=== PATIENT | female | born 1960 | race Two or more races ===

== ENCOUNTER 2017-02-19 17:28 | Emergency (ER) | payer OTHER ==
--- NOTE | 2017-02-19 18:17 | ER Document Report ---
ED Medical Screen (RME) - General Chief Complaint: Chest Tightness Stated Complaint: CHEST PAIN/LEFT SIDE NUMBNESS Time Seen by Provider: 02/19/17 18:14 Mode of Arrival: Ambulatory Information source: Patient Notes: 3 day history of shortness of breath occasional dyspnea on exertion swelling the lower extremities indigestion type chest discomfort or tightness and today has noticed numbness in the left face and left arm. She reports no history of prolonged travel or immobilization. She does report she had some laser treatments to veins in her legs approximately week ago and initially attributed to swelling in her legs to that. She reports slight tingling to the left face and arm now but denies shortness of breath or chest pain. 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 IN LAST 30 DAYS: No - Related Data Allergies/Adverse Reactions: gluten Allergy (Verified 02/19/17 17:49) moxifloxacin HCl [From Avelox] Adverse Reaction (Verified 01/07/14 16:41) Past Medical History Renal/ Medical History: Denies: Hx Peritoneal Dialysis Physical Exam - Vital signs Vitals: Temp Pulse Resp BP Pulse Ox 98.1 F 82 18 145/79 H 99 02/19/17 17:45 02/19/17 17:45 02/19/17 17:45 02/19/17 17:45 02/19/17 17:45 Course - Vital Signs Vital signs: Temp Pulse Resp BP Pulse Ox 98.1 F 82 18 145/79 H 99 02/19/17 17:45 02/19/17 17:45 02/19/17 17:45 02/19/17 17:45 02/19/17 17:45
[2017-02-19 18:55] LABS: ABSOLUTE EOSINOPHILS # (AUTO) 0.5 10^3/uL (0.0-0.6); ABSOLUTE LYMPHOCYTES (AUTO) 3.2 10^3/uL (0.5-4.7); ABSOLUTE MONOCYTES (AUTO) 0.6 10^3/uL (0.1-1.4); ABSOLUTE NEUT (AUTO) 7.5 10^3/uL (1.7-8.2); BASOPHILS % (AUTO) 0.4 % (0-2); EOSINOPHILS % (AUTO) 4.1 % (0-6); HEMATOCRIT 40.4 % (36.0-47.0); HEMOGLOBIN 13.4 g/dL (12.0-15.5); HGB HCT DIFFERENCE -0.2; LYMPHOCYTES % (AUTO) 27.1 % (13-45); MEAN CORPUSCULAR HEMOGLOBIN 26.9 pg (27.0-33.4); MEAN CORPUSCULAR HGB CONC 33.1 g/dL (32.0-36.0); MEAN CORPUSCULAR VOLUME 81 fl (80-97); MONOCYTES % (AUTO) 4.7 % (3-13); RED BLOOD COUNT 4.97 10^6/uL (3.72-5.28); RED CELL DISTRIBUTION WIDTH 12.9 % (11.5-14.0); SEGMENTED NEUTROPHILS % (AUTO) 63.7 % (42-78); WHITE BLOOD COUNT 11.8 10^3/uL (4.0-10.5)
[2017-02-19 19:08] LABS: ALANINE AMINOTRANSFERASE 34 U/L (9-52); ALBUMIN 4.5 g/dL (3.5-5.0); ALKALINE PHOSPHATASE 102 U/L (38-126); ANION GAP 14 (5-19); ASPARTATE AMINO TRANSFERASE 22 U/L (14-36); BILIRUBIN,DIRECT 0.3 mg/dL (0.0-0.4); BILIRUBIN,TOTAL 1.3 mg/dL (0.2-1.3); BLOOD UREA NITROGEN 14 mg/dL (7-20); CALCIUM 10.1 mg/dL (8.4-10.2); CARBON DIOXIDE 27 mmol/L (22-30); CHLORIDE 101 mmol/L (98-107); CREATINE KINASE 74 U/L (30-135); CREATININE RESULT 0.77 mg/dL (0.52-1.25); GLUCOSE 100 mg/dL (75-110); LIPASE 46.2 U/L (23-300); POTASSIUM 4.3 mmol/L (3.6-5.0); TOTAL PROTEIN 7.5 g/dL (6.3-8.2)
[2017-02-19 19:29] LABS: CREATINE KINASE MB 0.86 ng/mL (<4.55)
[2017-02-19 19:30] LABS: TROPONIN I < 0.012 ng/mL
--- NOTE | 2017-02-19 19:44 | ER Document Report ---
ED General - General Mode of Arrival: Ambulatory Information source: Patient TRAVEL OUTSIDE OF THE [place] IN LAST 30 DAYS: No - HPI Onset: Other - 3-5 days ago Associated symptoms: Other - see notes above <RASHAWN SINGLETON - Last Filed: 02/19/17 19:36> <STARLA LACY - Last Filed: 02/19/17 22:08> - General Chief Complaint: Chest Tightness Stated Complaint: CHEST PAIN/LEFT SIDE NUMBNESS Time Seen by Provider: 02/19/17 18:14 Notes: 56 year old female with history of GERD presents to the ED complaining of substernal and left chest pressure with deep breathing that started 3-5 days ago. Patient reports that she felt like she was having excess gas build up, so she has been taking GasX and Tums. Patient reports that she achieved relief when belching 2 days ago. Patient additionally complains of numbness and tingling to the left cheek and 'spotting' down the left lateral arm which started at 1400 today. Patient denies any weakness. Patient also states that she had bilateral lower extremity swelling which is no longer present. Patient had a laser treatment performed on her bilateral legs by Dr. Pierre every 10 days from 11/22/2016 to 01/10/2017. Patient has a follow up appointment with Dr. Pierre tomorrow (02/20/2017). Patient is currently on Estradiol and thyroid supplements. Patient's primary care provider is Dr. Thapa. (RASHAWN SINGLETON) - Related Data Allergies/Adverse Reactions: gluten Allergy (Verified 02/19/17 17:49) moxifloxacin HCl [From Avelox] Adverse Reaction (Verified 01/07/14 16:41) Past Medical History - General Information source: Patient - Social History Smoking Status: Unknown if Ever Smoked Family History: Reviewed & Not Pertinent Patient has suicidal ideation: No Patient has homicidal ideation: No Endocrine Medical History: Reports: Other - Patient is taking thyroid and estradiol supplementation. Renal/ Medical History: Reports: Hx Ovarian Cysts. Denies: Hx Peritoneal Dialysis GI Medical History: Reports: Hx Gastroesophageal Reflux Disease Past Surgical History: Reports: Hx Breast Surgery - breast implants and benign cyst removal, Hx Cholecystectomy, Hx Hysterectomy, Hx Tonsillectomy <RASHAWN SINGLETON - Last Filed: 02/19/17 19:36> Review of Systems - Review of Systems Constitutional: No symptoms reported EENT: No symptoms reported Cardiovascular: See HPI, Chest pain - "pressure" Respiratory: See HPI, Hurts to breathe Gastrointestinal: No symptoms reported Genitourinary: No symptoms reported Female Genitourinary: No symptoms reported Musculoskeletal: No symptoms reported Skin: No symptoms reported Hematologic/Lymphatic: No symptoms reported Neurological/Psychological: See HPI, Numbness - left face and left lateral arm, Tingling - left face and left lateral arm. denies: Weakness -: Yes All other systems reviewed and negative <SINGLETONRASHAWN - Last Filed: 02/19/17 19:36> Physical Exam - General General appearance: Alert In distress: None - HEENT Head: Normocephalic, Atraumatic Eyes: Normal Extraocular movements intact: Yes Pupils: PERRL Neck: Normal. No: Carotid bruit - Respiratory Respiratory status: No respiratory distress Chest status: Nontender Breath sounds: Normal Chest palpation: Normal - Cardiovascular Rhythm: Regular Heart sounds: Normal auscultation - Abdominal Inspection: Obese Distension: No distension Tenderness: Nontender - Back Back: Normal - Extremities General upper extremity: Normal inspection, Normal ROM. No: Edema General lower extremity: Normal inspection, Normal ROM. No: Edema - Neurological Neuro grossly intact: Yes - No motor deficits noted. - Psychological Associated symptoms: Normal affect, Normal mood - Skin Skin Temperature: Warm Skin Moisture: Dry Skin Color: Normal <VALENTIN SINGLETONUR - Last Filed: 02/19/17 19:36> Course - Laboratory Result Diagrams: 02/19/17 18:20 02/19/17 18:20 <SINGLETONRASHAWN - Last Filed: 02/19/17 19:36> - Laboratory Result Diagrams: 02/19/17 18:20 02/19/17 18:20 - Diagnostic Test Radiology reviewed: Image reviewed, Reports reviewed - CT scan of the brain is unremarkable, there is mucosal thickening in the right maxillary sinus. Chest x- ray is normal. - EKG Interpretation by Me EKG shows normal: Sinus rhythm, [place], Intervals, QRS Complexes, ST-T Waves Rate: Normal - 79 Rhythm: NSR <STARLA LACY - Last Filed: 02/19/17 22:08> - Vital Signs Vital signs: Temp Pulse Resp BP Pulse Ox 98.1 F 61 16 118/76 94 02/19/17 17:45 02/19/17 19:55 02/19/17 19:55 02/19/17 21:01 02/19/17 21:02 - Laboratory Laboratory results interpreted by me: 02/19/17 18:20 WBC 11.8 H MCH 26.9 L Discharge <RASHAWN SINGLETON - Last Filed: 02/19/17 19:36> <STARLA LACY - Last Filed: 02/19/17 22:08> - Discharge Clinical Impression: Numbness and tingling, Chest tightness or pressure, Shortness of breath Condition: Stable Disposition: HOME, SELF-CARE Additional Instructions: The CT scan of your head showed only some right maxillary sinus disease. Your EKG was normal. Testing for the presence of blood clots causing his shortness of breath was negative. The numbness and tingling sensation you had has been improving. At this time we cannot definitively say if this is a transient ischemic attack or not. You should take 4 baby aspirin this evening. Follow-up with Dr. Thapa tomorrow for further evaluation. RETURN TO THE EMERGENCY ROOM IF ANY NEW OR WORSENING SYMPTOMS. Referrals: MICKI DA SILVA MD [Primary Care Provider] - Follow up tomorrow Scribe Attestation: 02/19/17 22:07 I personally performed the services described in the documentation, reviewed and edited the documentation which was dictated to the scribe in my presence, and it accurately records my words and actions. (STARLA LACY) Scribe Documentation - Scribe Written by Veda:: Veda Cruz, 02/19/2017 194 acting as scribe for :: Inez <RASHAWN SINGLETON - Last Filed: 02/19/17 19:36>
[2017-02-19 22:36] VITALS: BP 132/84
--- NOTE | 2017-02-19 23:38 | EKG REPORT ---
SEVERITY:- NORMAL ECG - SINUS RHYTHM : Confirmed by: Migel Rodriguez 19-Feb-2017 23:37:12
== END 2017-02-19 22:37 | disposition home or self-care (01) ==
LOC: ER 17:28
DX: R07.89 Other chest pain (principal); R20.0 Anesthesia of skin; R20.2 Paresthesia of skin; R06.02 Shortness of breath; Z98.890 Other specified postprocedural states; Z79.899 Other long term (current) drug therapy; Z91.018 Allergy to other foods; Z79.890 Hormone replacement therapy
CPT/HCPCS: 36415; 70450; 71010; 80053; 82550; 82553; 83690; 83880; 84484; 85025; 85379; 93005; 93010; 99285

== ENCOUNTER → 2019-05-31 | Outpatient (CLI) | payer OTHER ==
--- NOTE | 2019-06-01 18:19 | XCELERA REPORT ---
[address] [address] Transthoracic Echocardiogram Report Name: CHRISTINA APPLE Age: 58 yrs Gender: Female : 1960 Patient Status: Preadmit Patient Location: [facility] Study Date: 05/31/2019 09:10 AM Height: 67 in Weight: 182 lb BSA: 1.9 m2 Procedure: A two-dimensional transthoracic echocardiogram with color flow and Doppler was performed. Study Quality: Fair. Reason For Study: ENCOUNTER FOR CHEMO History: ENCOUNTER FOR CHEMOTHERAPY. Ordering Physician: LORI ROJO Performed By: Libby Benoit Interpretation Summary The left ventricle is normal in size. There is normal left ventricular wall thickness. The left ventricular ejection fraction is within normal limits. LV EF is 65% Doppler measurements suggest impaired left ventricular relaxation, which is associated with grade I/IV or mild diastolic dysfunction The left ventricular wall motion is normal. There is no thrombus. No ASD,VSD , or PFO seen. The right ventricle is grossly normal size. The right atrium is normal. The left atrial size is normal. There is no evidence of mitral valve prolapse. There is no vegetation seen on the mitral valve. There is no mitral valve stenosis. There is a mild amount of mitral regurgitation There is no aortic valvular vegetation. There is no aortic valve stenosis There is no LVOT obstruction. There is a trace to mild amount of aortic regurgitation There is no tricuspid stenosis. There is a trace amount of tricuspid regurgitation Unable to calculate RVSP due to insufficient TR jet. There is no pulmonic valvular stenosis. There is a trace amount of pulmonic regurgitation The aortic root is normal size. The inferior vena cava appeared normal and decreased > 50% with respiration (RAP 5-10 mmHg) There is no pericardial effusion. MMode/2D Measurements & Calculations RVDd: 3.3 cm LVIDd: 4.3 cm FS: 33.1 % Ao root diam: 2.8 cm IVSd: 0.91 cm LVIDs: 2.9 cm EDV(Teich): Ao root area: LVPWd: 0.88 cm 83.5 ml 6.1 cm2 ESV(Teich): LA dimension: 3.5 cm 31.8 ml EF(Teich): 62.0 % LVLd ap4: 7.4 cm SV(MOD-sp4): EDV(MOD-sp4): 53.0 ml 82.0 ml LVLs ap4: 5.9 cm ESV(MOD-sp4): 29.0 ml EF(MOD-sp4): 64.6 % Doppler Measurements & Calculations MV E max amara: MV P1/2t max amara: Ao V2 max: LV V1 max P.2 cm/sec 49.0 cm/sec 108.2 cm/sec 4.4 mmHg MV A max amara: MV P1/2t: 100.3 msec Ao max P.7 mmHg LV V1 max: 74.8 cm/sec MVA(P1/2t): 2.2 cm2 104.9 cm/sec MV E/A: 0.64 MV dec slope: 142.9 cm/sec2 MV dec time: 0.32 sec PA V2 max: PI end-d amara: MV P1/2t-pr_phl: 64.4 cm/sec 97.3 cm/sec 100.3 msec PA max P.7 mmHg Left Ventricle The left ventricle is normal in size. There is normal left ventricular wall thickness. The left ventricular ejection fraction is within normal limits. LV EF is 65%. Doppler measurements suggest impaired left ventricular relaxation, which is associated with grade I/IV or mild diastolic dysfunction. The left ventricular wall motion is normal. There is no thrombus. No ASD,VSD , or PFO seen. Right Ventricle The right ventricle is grossly normal size. Atria The right atrium is normal. The left atrial size is normal. Mitral Valve There is no evidence of mitral valve prolapse. There is no vegetation seen on the mitral valve. There is no mitral valve stenosis. There is a mild amount of mitral regurgitation. Aortic Valve There is no aortic valvular vegetation. There is no aortic valve stenosis. There is no LVOT obstruction. There is a trace to mild amount of aortic regurgitation. Tricuspid Valve There is no tricuspid stenosis. There is a trace amount of tricuspid regurgitation. Unable to calculate RVSP due to insufficient TR jet. Pulmonic Valve There is no pulmonic valvular stenosis. There is a trace amount of pulmonic regurgitation. Great Vessels The aortic root is normal size. The inferior vena cava appeared normal and decreased > 50% with respiration (RAP 5-10 mmHg). Effusions There is no pericardial effusion. : LORI ROJO > Gisella Michaels
== END ==
LOC: SP 08:24
PROVIDERS: ATTEND Internal Medicine Hematology & Oncology
DX: Z09 Encounter for follow-up examination after completed treatment for conditions other than malignant neoplasm (principal); Z79.899 Other long term (current) drug therapy
CPT/HCPCS: 93306

== ENCOUNTER → 2019-08-25 | Outpatient (CLI) | payer OTHER ==
--- NOTE | 2019-08-26 21:54 | XCELERA REPORT ---
[address] [address] Transthoracic Echocardiogram Report Name: CHRISTINA APPLE Age: 59 yrs Gender: Female : 1960 Patient Status: Outpatient Patient Location: [facility] Study Date: 08/25/2019 02:05 PM Height: 67 in Weight: 174 lb BSA: 1.9 m2 Procedure: A two-dimensional transthoracic echocardiogram with color flow and Doppler was performed. The study was technically difficult with many images being suboptimal in quality. Reason For Study: ANTINEOPLASTIC CHEMOTHERAPY History: ANTINEOPLASTIC CHEMOTHERAPY. Ordering Physician: YUE DE PAZ Performed By: Consuelo Tejeda Interpretation Summary The left ventricle is normal in size. There is normal left ventricular wall thickness. LV EF is 65% Left ventricular systolic function is normal. Doppler measurements suggest impaired left ventricular relaxation, which is associated with grade I/IV or mild diastolic dysfunction The left ventricular wall motion is normal. There is no thrombus. Probably no ASD ,VSD ,or PFO seen The right ventricular cavity is small. The right ventricle is not well visualized secondary to technical limitations The right atrium is normal. The left atrial size is normal. There is no evidence of mitral valve prolapse. There is no vegetation seen on the mitral valve. There is no mitral valve stenosis. There is a trace amount of mitral regurgitation There is no aortic valvular vegetation. There is no aortic valve stenosis There is no LVOT obstruction. There is a trace amount of aortic regurgitation There is no tricuspid stenosis. There is a trace amount of tricuspid regurgitation Tricuspid regurgitation jet envelope not well defined to measure RV systolic pressure accurately. There is no pulmonic valvular stenosis. There is no pulmonic valvular regurgitation. The aortic root is normal size. The inferior vena cava appeared normal and decreased > 50% with respiration (RAP 5-10 mmHg) There is no pericardial effusion. MMode/2D Measurements & Calculations IVSd: 0.88 cm LVIDd: 4.4 cm FS: 37.1 % Ao root diam: 3.1 cm LVIDs: 2.8 cm EDV(Teich): 88.2 ml Ao root area: 7.4 cm2 LVPWd: 1.1 cm ESV(Teich): 28.9 ml EF(Teich): 67.3 % Doppler Measurements & Calculations MV E max amara: MV dec slope: Ao V2 max: AI max amara: 55.9 cm/sec 285.9 cm/sec2 143.3 cm/sec 445.6 cm/sec MV A max amara: MV dec time: Ao max PG: AI max P.4 mmHg 62.6 cm/sec 0.20 sec 8.2 mmHg AI dec slope: MV E/A: 0.89 366.9 cm/sec2 AI P1/2t: 355.7 msec LV V1 max PG: PA V2 max: 6.3 mmHg 79.9 cm/sec LV V1 max: PA max P.6 mmHg 125.8 cm/sec Left Ventricle The left ventricle is normal in size. There is normal left ventricular wall thickness. LV EF is 65%. Left ventricular systolic function is normal. Doppler measurements suggest impaired left ventricular relaxation, which is associated with grade I/IV or mild diastolic dysfunction. The left ventricular wall motion is normal. There is no thrombus. Probably no ASD ,VSD ,or PFO seen. Right Ventricle The right ventricular cavity is small. The right ventricle is not well visualized secondary to technical limitations. Atria The right atrium is normal. The left atrial size is normal. Mitral Valve There is no evidence of mitral valve prolapse. There is no vegetation seen on the mitral valve. There is no mitral valve stenosis. There is a trace amount of mitral regurgitation. Aortic Valve There is no aortic valvular vegetation. There is no aortic valve stenosis. There is no LVOT obstruction. There is a trace amount of aortic regurgitation. Tricuspid Valve There is no tricuspid stenosis. There is a trace amount of tricuspid regurgitation. Tricuspid regurgitation jet envelope not well defined to measure RV systolic pressure accurately. Pulmonic Valve There is no pulmonic valvular stenosis. There is no pulmonic valvular regurgitation. Great Vessels The aortic root is normal size. The inferior vena cava appeared normal and decreased > 50% with respiration (RAP 5-10 mmHg). Effusions There is no pericardial effusion. : YUE DE PAZ Lakshmi
== END ==
LOC: SP 12:50
PROVIDERS: ATTEND Nurse Practitioner Family
DX: Z51.11 Encounter for antineoplastic chemotherapy (principal); I34.0 Nonrheumatic mitral (valve) insufficiency
CPT/HCPCS: 93306

== ENCOUNTER → 2019-11-25 | Outpatient (CLI) | payer OTHER ==
--- NOTE | 2019-11-25 18:19 | XCELERA REPORT ---
[address] [address] Transthoracic Echocardiogram Report Name: CHRISTINA APPLE Age: 59 yrs Gender: Female : 1960 Patient Status: Outpatient Patient Location: [facility] Study Date: 11/25/2019 09:16 AM Height: 67 in Weight: 169 lb BSA: 1.9 m2 Reason For Study: HERCEPTIN MONITORING Ordering Physician: YUE DE PAZ Performed By: Fransico Cuevas Interpretation Summary Reason for ECHO is for herceptin monitoring. Suboptimal echo study is due to no Quantitative Biplane LVEF, Visual impression of LVEFis crude and not precise enough to detect systolic impairment to guide continuation or withholding of Herceptin, hence should not be used. Temporal variability of EF adds to difficulty of monitoring and detection of cardiotoxicity caused by chemotherapy. Chemotherapy pts need to be sent to major centres for 3 D ECHO and strain imaging in order to get accurate assessment of early changes in myocardial function and identify subclinical LV dysfunction. With the above stipulation, echo report as follows; Moderate calcified aortic root. Mild nonstenotic calcific aortic valvular disease, 3 cusps, mild AR with no LV enlargement. No mitral annular calcification. No MS, no MVP and only mild MR with no LA enlargement. No LVH, LVEF visually 60-65% with LV diastolic dysfunction stage I. Except for basal inferior wall, there appears to be no hypokinesis in other segments of LV.No LV enlargement. This Hospital doesnot have 3D ECHO equipment and no expertise in strain imaging to assess subtle or subclinical systolic impairment. Right heart is not enlarged and mild TR was not sampled to allow derivation of RVSP or pulm .hypertension. MMode/2D Measurements & Calculations RVDd: 2.9 cm LVIDd: 4.4 cm FS: 32.9 % Ao root diam: 3.2 cm IVSd: 0.94 cm LVIDs: 3.0 cm EDV(Teich): 89.9 ml LVPWd: 0.82 cm ESV(Teich): 34.5 ml Ao root area: 8.0 cm2 LA dimension: 3.8 cm EF(Teich): 61.6 % Doppler Measurements & Calculations MV E max amara: MV P1/2t max amara: Ao V2 max: AI max amara: 53.7 cm/sec 61.5 cm/sec 102.6 cm/sec 404.0 cm/sec MV A max amara: MV P1/2t: 58.1 msec Ao max P.2 mmHgAI max P.5 cm/sec MVA(P1/2t): 3.8 cm2 65.3 mmHg MV E/A: 0.82 MV dec slope: AI dec slope: 261.7 cm/sec2 310.2 cm/sec2 AI P1/2t: MV dec time: 452.1 msec 0.27 sec LV V1 max PG: PA V2 max: AV P1/2t-pr_phl: MV P1/2t-pr_phl: 4.6 mmHg 92.3 cm/sec 452.1 msec 58.1 msec LV V1 max: PA max P.4 mmHg 107.1 cm/sec I WMSI = 1.06 % Normal = 94 Segments Size X - Cannot 2 - 4 - 1-2 small Interpret 1 - Normal Hypokinetic 3 - AkineticDyskinetic 3-5 moderate 5 - 6-14 large Aneurysmal 15-16 diffuse : YUE DE PAZ Andre
== END ==
LOC: RAD 08:52
PROVIDERS: ATTEND Nurse Practitioner Family
DX: Z79.899 Other long term (current) drug therapy (principal)
CPT/HCPCS: 93306

== ENCOUNTER 2020-02-07 10:09 | Emergency (ER) | payer OTHER ==
--- NOTE | 2020-02-07 10:34 | ER Document Report ---
ED Cardiac - General Chief Complaint: Chest Pain Stated Complaint: CHEST DISCOMFORT Time Seen by Provider: 02/07/20 10:20 Primary Care Provider: YUE DE PAZ FNP-C [Primary Care Provider] - Follow up as needed Notes: HPI: 59-year-old female that presents today stating she was walking today and felt some "gas-like pain" in the epigastric region. No radiation to the back of the chest. No cough, fevers, or shortness of breath. No calf pain or leg swelling. She denies any other aggravating relieving factors. No nausea, vomiting, or fevers. She was concerned because she started to feel little lightheaded. Patient is status post double mastectomy completing a course of chemotherapy September 27. She is on q. 3-week infusions of maintenance therapy by the oncologist. She denies any cardiac history. She currently denies any abdominal or chest pain at this time. ROS: See HPI All other review of systems reviewed and otherwise negative Reviewed vital signs and nursing note as charted by RN. PHYSICAL EXAM: CONSTITUTIONAL: Alert and oriented and responds appropriately to questions. Well-appearing; well-nourished HEAD: Normocephalic; atraumatic EYES: PERRL; Conjunctivae clear, sclerae non-icteric ENT: Normal nose; no rhinorrhea; moist mucous membranes; pharynx without lesions noted NECK: Supple without meningismus; non-tender; no cervical lymphadenopathy, no masses CARD: Regular rate and rhythm; no murmurs; symmetric distal pulses RESP: Normal chest excursion without splinting or tachypnea; breath sounds clear and equal bilaterally; no wheezes, no rhonchi, no rales ABD/GI: Normal bowel sounds; non-distended; soft, non-tender; no palpable organomegaly or masses BACK: The back appears normal and is non-tender to palpation EXT: Normal ROM in all joints; non-tender to palpation; no edema SKIN: No acute lesions noted NEURO: CN 2-12 intact; 5/5 bilateral upper and lower extremity strength with sensation intact to light touch PSYCH: The patient's mood and manner are appropriate. Grooming and personal hygiene are appropriate. TRAVEL OUTSIDE OF THE [place] IN LAST 30 DAYS: No - Related Data Allergies/Adverse Reactions: gluten Allergy (Verified 02/19/17 17:49) moxifloxacin HCl [From Avelox] Adverse Reaction (Verified 01/07/14 16:41) Past Medical History - Social History Smoking Status: Unknown if Ever Smoked Family History: Reviewed & Not Pertinent Renal/ Medical History: Reports: Hx Ovarian Cysts. Denies: Hx Peritoneal Dialysis GI Medical History: Reports: Hx Gastroesophageal Reflux Disease Past Surgical History: Reports: Hx Breast Surgery - breast implants and benign cyst removal, Hx Cholecystectomy, Hx Hysterectomy, Hx Tonsillectomy - Immunizations Hx Diphtheria, Pertussis, Tetanus Vaccination: No Physical Exam - Vital signs Vitals: Temp 97.8 F 02/07/20 10:24 Course - Re-evaluation Re-evalutation: 02/07/20 10:33 Given the above history and physical, vital signs as recorded, no tachycardia or hypoxia, no radiation to the back, pain-free, I do believe pulmonary embolism and aortic dissection to be unlikely. Patient's pain was mostly to the epigastric region when this occurred. She currently has no tenderness to palpation of the abdomen or the right upper quadrant. It was not associated with food. Given the concern of the possible etiology of epigastric discomfort on immunosuppressive medications I will obtain a liver panel and lipase to evaluate for transaminitis and pancreatitis. Given the possibility of a cardiac equivalent presentation, will obtain 2 sets of cardiac enzymes by 3 hours. EKG shows heart of 64, normal sinus rhythm, normal axis, no ST elevation or depression. 02/07/20 13:12 Labs and x-ray as recorded. No signs of heart failure. Second troponin is pending. EKG is completely normal. I did call and speak to the patient's oncologist regarding the immunomodulating therapy that the patient is taking. She did have a recent echo in November. No other concerns noted from the on cologist. Patient has a heart score less than or equal to 3. If the second troponin is negative, given that the patient currently has no symptomatology, with 2- troponins, with a normal EKG, I believe it is reasonable to discharge the patient home with strict return precautions and follow-up with cardiology and the patient's own oncologist. I have called and spoken directly to the tankage supervisor Dr. Russo. He will have his office call to help expedite outpatient follow-up. Patient is very co mfortable and happy with this plan. - Vital Signs Vital signs: Temp Pulse Resp BP Pulse Ox 97.8 F 100 02/07/20 10:24 02/07/20 10:36 - Laboratory Result Diagrams: 02/07/20 10:20 02/07/20 10:20 Laboratory results interpreted by me: 02/07/20 02/07/20 10:20 10:20 Lymph % (Auto) 48.2 H Glucose 127 H AST 58 H Alkaline Phosphatase 135 H Discharge - Discharge Clinical Impression: Chest pain Qualifiers: Chest pain type: unspecified Qualified Code(s): R07.9 - Chest pain, unspecified Condition: Good Disposition: HOME, SELF-CARE Additional Instructions: Come back immediately for any return or worsening pain, change in location or quality of pain, fevers or vomiting, leg swelling, or any other acute problems. Please make sure that she follow-up with the oncologist as well as the tankage supervisor that I have helped expedite for you. Referrals: YUE DE PAZ FNP-C [Primary Care Provider] - Follow up as needed BEL RUSSO MD [ACTIVE STAFF] - Follow up as needed
[2020-02-07 10:35] LABS: ABSOLUTE EOSINOPHILS # (AUTO) 0.3 10^3/uL (0.0-0.6); ABSOLUTE LYMPHOCYTES (AUTO) 3.6 10^3/uL (0.5-4.7); ABSOLUTE MONOCYTES (AUTO) 0.3 10^3/uL (0.1-1.4); ABSOLUTE NEUT (AUTO) 3.2 10^3/uL (1.7-8.2); BASOPHILS % (AUTO) 0.4 % (0-2); EOSINOPHILS % (AUTO) 4.5 % (0-6); HEMATOCRIT 38.7 % (36.0-47.0); HEMOGLOBIN 13.2 g/dL (12.0-15.5); LYMPHOCYTES % (AUTO) 48.2 % (13-45); MEAN CORPUSCULAR HEMOGLOBIN 28.6 pg (27.0-33.4); MEAN CORPUSCULAR VOLUME 84 fl (80-97); MONOCYTES % (AUTO) 4.6 % (3-13); PLATELET COUNT 242 10^3/uL (150-450); RED BLOOD COUNT 4.61 10^6/uL (3.72-5.28); RED CELL DISTRIBUTION WIDTH 13.9 % (11.5-14.0); SEGMENTED NEUTROPHILS % (AUTO) 42.3 % (42-78); TOTAL CELLS COUNTED % (AUTO) 100 %; WHITE BLOOD COUNT 7.6 10^3/uL (4.0-10.5)
--- NOTE | 2020-02-07 11:04 | RADIOLOGY REPORT (SQ) ---
EXAM DESCRIPTION: CHEST SINGLE VIEW IMAGES COMPLETED DATE/TIME: 02/07/2020 10:44 am REASON FOR STUDY: bed 19 chest pain COMPARISON: PA view of the chest from 02/19/2017. EXAM PARAMETERS: NUMBER OF VIEWS: One view. TECHNIQUE: An AP view of the chest was obtained. RADIATION DOSE: NA LIMITATIONS: None. FINDINGS: LUNGS AND PLEURA: No consolidation, pleural effusion or pneumothorax. MEDIASTINUM AND HILAR STRUCTURES: No mediastinal or hilar contour abnormality. HEART AND VASCULAR STRUCTURES: The cardiac silhouette and pulmonary vasculature are within normal lara its. BONES: No acute findings. HARDWARE: The tip of the right IJ single-lumen poor projects within the SVC. There surgical clips th at project over the left axilla and mid right hemithorax. OTHER: No other finding. IMPRESSION: No acute cardiopulmonary process. TECHNICAL DOCUMENTATION: JOB ID: [id number] 2010 [employer]- All Rights Reserved Reading location - IP/workstation name: [email or web address]
[2020-02-07 11:19] LABS: CREATINE KINASE MB 1.37 ng/mL (<4.55)
[2020-02-07 11:23] LABS: TROPONIN I < 0.012 ng/mL
[2020-02-07 11:43] LABS: ALBUMIN 4.2 g/dL (3.5-5.0); ALKALINE PHOSPHATASE 135 U/L (38-126); ANION GAP 9 (5-19); ASPARTATE AMINO TRANSFERASE 58 U/L (14-36); BILIRUBIN,DIRECT 0.1 mg/dL (0.0-0.4); BILIRUBIN,TOTAL 1.3 mg/dL (0.2-1.3); BLOOD UREA NITROGEN 19 mg/dL (7-20); CALCIUM 9.7 mg/dL (8.4-10.2); CARBON DIOXIDE 27 mmol/L (22-30); CHLORIDE 102 mmol/L (98-107); CREATINE KINASE 91 U/L (30-135); GLUCOSE 127 mg/dL (75-110); POTASSIUM 4.3 mmol/L (3.6-5.0); TOTAL PROTEIN 7.3 g/dL (6.3-8.2)
[2020-02-07 13:45] VITALS: BP 113/66
--- NOTE | 2020-02-07 15:18 | EKG REPORT ---
SEVERITY:- NORMAL ECG - SINUS RHYTHM : Confirmed by: Gisella Michaels MD 07-Feb-2020 15:17:29
== END 2020-02-07 14:07 | disposition home or self-care (01) ==
LOC: ER 10:09
DX: R07.9 Chest pain, unspecified (principal); R10.13 Epigastric pain; Z79.899 Other long term (current) drug therapy; Z90.13 Acquired absence of bilateral breasts and nipples; Z88.8 Allergy status to other drugs, medicaments and biological substances
CPT/HCPCS: 36415; 71045; 80053; 82550; 82553; 83690; 84484; 85025; 93005; 93010; 99285

== ENCOUNTER → 2020-02-21 | Outpatient (CLI) | payer OTHER ==
[~2020-02-21] MED LIST: REGADENOSON INJ 0.4 MG/5 ML DISP.SYRIN IV ONE
--- NOTE | 2020-02-22 09:16 | DRAGON STRESS TEST REPORT ---
Pharmacological nuclear stress test Date: February 21, 2020 Referring physician: [facility] Performing physician: Wilmer Conti MD Indication: Chest pain Clinical history 59 year-old lady with medical history significant for carcinoma of the breast as well as dyslipidemia who presented with chest pain. We decided to proceed with pharmacological nuclear stress test Procedure The patient presented to the stress lab. Initially rest images were obtained according to standard protocol after the injection of 12.85 millicurie technetium 99m sestamibi. Subsequently the patient underwent pharmacological stress utilizing 0.4 mg of regadenoson intravenously. The patient's EKG and vital signs were monitored throughout the procedure. Subsequently patient was injected with 37.9 millicuries of technetium 99m sestamibi. After a period of rest, stress images were obtained according to standard protocol. The patient's resting EKG showed sinus rhythm at 71 beats per minute. The patient's stress EKG did not show any evidence for myocardial ischemia. There were no arrhythmias observed. Raw as well as processed rest and stress images were reviewed. There was mild gut and biliary uptake which did not interfere with the study. The rest and stress images show uniform uptake of radioactive isotope without any fixed or reversible defects to suggest myocardial ischemia or myocardial infarction. There is normal contractility post-rest. The calculated ejection fraction is 54%. The TID ratio is 1.18. Conclusion The stress EKG is negative for myocardial ischemia There is no scintigraphic evidence of myocardial infarction or ischemia provoked by pharmacological stress. There is normal contractility post-stress. The gated left ventricular ejection fraction is 54%. The patient will be given an appointment to discuss these results. MTDD
== END ==
LOC: RAD 06:53
PROVIDERS: ATTEND Internal Medicine
DX: I20.0 Unstable angina (principal); R07.89 Other chest pain; R06.09 Other forms of dyspnea; E78.00 Pure hypercholesterolemia, unspecified; Z85.3 Personal history of malignant neoplasm of breast
CPT/HCPCS: 93306; 93017; 78452; A9500; J2785; Q9969

== ENCOUNTER → 2020-05-22 | Outpatient (CLI) | payer OTHER ==
--- NOTE | 2020-05-22 19:24 | XCELERA REPORT ---
[address] [address] Transthoracic Echocardiogram Report Name: CHRISTINA APPLE Age: 59 yrs Gender: Female : 1960 Patient Status: Preadmit Patient Location: Study Date: 05/22/2020 03:24 PM Height: 67 in Weight: 182 lb BSA: 1.9 m2 Procedure: A complete two-dimensional transthoracic echocardiogram was performed (2D, M-mode, spectral and color flow Doppler). The study was technically adequate with some images being suboptimal in quality. Reason For Study: CHEMOTHERAPY, BREAST CA Ordering Physician: LORI ROJO Performed By: Fransico Cuevas Interpretation Summary LEFT VENTRICLE: LV Systolic function: LVEF is felt to be within normal limits. Best estimate is approximately 65%. LV Diastolic Function: Grade II diastolic dysfunction noted. Wall motion: not all segments were well visualised, cannot accurately comment on regional wall motion. Left ventricular chamber size: is within normal limit. Left ventricular wall thickness: is increased indicative of Mild LVH. RIGHT VENTRICLE: RV systolic function: is felt to be within normal limit. Right Ventricle Size: is within normal limits. LEFT ATRIUM size: is mildly dilated. RIGHT ATRIUM size: is within normal limit. INTER ATRIAL SEPTUM: No definite atrial septal defect noted however a small PFO could be missed. AORTIC ROOT: seems to be within normal limits. ASCENDING AORTA: is not well visualized. INFERIOR VENA CAVA: was not well visualized. VALVES: MITRAL VALVE: Leaflets are mildly thickened. Mobility seems to be within normal limits. Mitral Regurgitation: mild to moderate mitral regurgitation is noted. Mitral Stenosis: No mitral stenosis noted. Mitral valve prolapse: none noted. AORTIC VALVE: seems to be trileaflet with mild thickening but adequate excursion. Aortic stenosis: No aortic stenosis noted. Aortic regurgitation: mild aortic incompetence noted. TRICUSPID VALVE: mobility and structures within normal limit. Tricuspid stenosis: no tricuspid stenosis noted. Tricuspid regurgitation: Trace tricuspid regurgitation noted. Estimated RVSP: cannot be accurately commented upon but possibly at upper limit of normal. PULMONARY VALVE: was not well visualized but no significant abnormalities suspected. Pulmonary stenosis: no pulmonary stenosis noted. Pulmonary regurgitation: no significant pulmonary regurgitation noted. MASSES AND THROMBUS: No definite intracardiac thrombus or masses are noted. PERICARDIUM: No pericardial effusion was noted. IMPRESSION: 1. Normal LVEF. 2. Mild LVH noted. 3. Grade II [mild] Diastolic Dysfunction noted. 4. Mild to moderate mitral, mild aortic, and trace tricuspid regurgitation noted. 5. LA is mildly dilated. MMode/2D Measurements & Calculations RVDd: 2.4 cm LVIDd: 4.8 cm FS: 41.1 % Ao root diam: 3.1 cm IVSd: 1.1 cm LVIDs: 2.8 cm EDV(Teich): 107.7 ml Ao root area: 7.4 cm2 LVPWd: 0.89 cm ESV(Teich): 30.4 ml LA dimension: 3.5 cm EF(Teich): 71.8 % Doppler Measurements & Calculations MV E max amara: MV P1/2t max amara: Ao V2 max: AI max amara: 69.1 cm/sec 66.1 cm/sec 111.0 cm/sec 407.6 cm/sec MV A max amara: MV P1/2t: 59.8 msec Ao max P.9 mmHgAI max P.7 cm/sec MVA(P1/2t): 3.7 cm2 66.5 mmHg MV E/A: 0.88 MV dec slope: AI dec slope: 268.3 cm/sec2 323.5 cm/sec2 AI P1/2t: MV dec time: 444.9 msec 0.20 sec LV V1 max PG: PA V2 max: AV P1/2t-pr_phl: MV P1/2t-pr_phl: 5.1 mmHg 82.9 cm/sec 444.9 msec 59.8 msec LV V1 max: PA max P.8 mmHg 113.4 cm/sec LV dP/dt: 1010 mmHg/s : LORI ROJO Shyamal
== END ==
LOC: SP 14:45
PROVIDERS: ATTEND Internal Medicine Hematology & Oncology
DX: Z08 Encounter for follow-up examination after completed treatment for malignant neoplasm (principal); C50.412 Malignant neoplasm of upper-outer quadrant of left female breast; Z79.899 Other long term (current) drug therapy; I08.1 Rheumatic disorders of both mitral and tricuspid valves
CPT/HCPCS: 93306